=== PATIENT | male | born 1965 | race African-American/Black ===

== ENCOUNTER 2020-06-16 13:40 | Emergency (ER) | payer OTHER ==
[~2020-06-16] VITALS: Ht 167.6 cm; Wt 100.0 kg
[~2020-06-16 13:40] MED LIST: DICL50TA2 PO
[2020-06-16 14:30] VITALS: BP 119/77
[2020-06-16] MEDS ORDERED: KETOROLAC 60 MG/2 ML VIAL. IM ONE (15:00)
--- NOTE | 2020-06-16 15:26 | RAD ---
EXAM: Pelvis CT without contrast. HISTORY: Fall. Pain. TECHNIQUE: Computed tomographic images of the pelvis were obtained without contrast. *One or more of the following individualized dose reduction techniques were utilized for this examina tion: 1. Automated exposure control. 2. Adjustment of the mA and/or kV according to patient size. 3. Use of iterative reconstruction technique. COMPARISON: None. FINDINGS: No acute fracture is seen. There is no hip dislocation. There are bilateral os acetabuli or chronic fragmented superior acetabular osteophytes. There is minimal marginal femoral head spurring. There is mild degenerative change involving the sacroiliac joints. At L4-L5, there is a left foraminal to extra foraminal disc protrusion and osteophyte complex superim posed on a disc bulge and endplate remodeling. There is mild bilateral facet arthropathy. There is mo derate right and moderate to severe left foraminal stenosis. There is moderate central canal stenosis . At L5-S1, there is a disc bulge and endplate remodeling. There is moderate right facet arthropathy. T here is moderate right and mild left foraminal stenosis. The visualized abdominal and pelvic visceral and vascular structures are unremarkable. IMPRESSION: 1. No acute osseous finding. 2. Minimal bilateral hip osteoarthritis. 3. Degenerative change at the lower lumbar levels, resulting in stenosis as described above. Electronically signed by: Yara Goodwin MD (06/16/2020 3:24 PM) [id number]
[2020-06-16] MEDS ORDERED: MELO15TA23 PO (16:31)
--- NOTE | 2020-06-16 16:31 | PHYS DOC ---
Past Medical History Past Medical History: No Pertinent History Past Surgical History: No Surgical History Smoking Status: Never Smoker Alcohol Use: None General Adult EDM: Chief Complaint: HIP PAIN HPI: HPI: Patient is a 55 year old complains of a fall 2 weeks ago in which she suffered left hip pain. States that a week ago he could not stand the pain anymore and was seen at [facility]. Patient states that the emergency department at did an x-ray of his hip told him there was no fracture and sent him home with pain medications. States he has taken all of his [place] and is out of pain medications and wants reevaluated for his hip pain as he states it is a 10/10 on a 1-10 pain scale and he cannot take the pain any longer. Patient denies any numbness or tingling to his lower extremities, denies swelling of his lower extremities. Patient denies any other symptoms or complaints. Review of Systems: Review of Systems: 14 body systems of review of systems have been reviewed. See HPI for pertinent positives and negative responses, otherwise all other systems are negative, nonpertinent or noncontributory. Heart Score: Risk Factors: Risk Factors: DM, Current or recent (<one month) smoker, HTN, HLP, family history of CAD, obesity. Risk Scores: Score 0 - 3: 2.5% MACE over next 6 weeks - Discharge Home Score 4 - 6: 20.3% MACE over next 6 weeks - Admit for Clinical Observation Score 7 - 10: 72.7% MACE over next 6 weeks - Early Invasive Strategies Current Medications: Current Medications Medications (Trade) Dose Ordered Sig/[facility] Start Time Stop Time Status Last Admin Dose Admin Ketorolac Tromethamine (Toradol Im) 60 mg 1X ONCE 06/16/20 15:00 06/16/20 15:01 DC 06/16/20 15:23 60 MG Allergies: Allergies: Allergies Coded Allergies Type Severity Reaction Last Updated Verified No Known Drug Allergies 06/16/20 No Physical Exam: PE: Constitutional: Well developed, well nourished, no acute distress, non-toxic appearance. Patient is complaint of pain is greater than physical examination and presentation. HENT: Normocephalic, atraumatic, bilateral external ears normal, oropharynx moist, no oral exudates, nose normal. Eyes: PERRLA, EOMI, conjunctiva normal, no discharge. Neck: Normal range of motion, no tenderness, supple, no stridor. Cardiovascular:Heart rate regular rhythm, no murmur Lungs & Thorax: Bilateral breath sounds clear to auscultation Abdomen: Bowel sounds normal, soft, no tenderness, no masses, no pulsatile masses. Skin: Warm, dry, no erythema, no rash. Back: No tenderness, no CVA tenderness. Extremities: No tenderness, no cyanosis, no clubbing, ROM intact, no edema. Except for pain elicited to left hip with palpation, no loss of sensation, limited passive range of motion related to patient's complaint of pain, no swelling, no edema, distal cap refill less than 2 seconds on the left leg, 2+ dorsalis pedis/posterior tibial pulses of the left leg. Bilateral lower extremities neurovascular intact. Neurologic: Alert and oriented X 3, normal motor function, normal sensory function, no focal deficits noted. Psychologic: Affect normal, judgement normal, mood normal. Current Patient Data: Vital Signs: Vital Signs Date Time Temp Pulse Resp B/P (MAP) Pulse Ox O2 Delivery O2 Flow Rate FiO2 06/16/20 14:30 98.6 103 18 119/77 (91) 98 Room Air 98.6 EKG: EKG: [] Radiology/Procedures: Radiology/Procedures: SEX: M EXAM STATUS: REG ER ORD. PHYSICIAN: CHRISTY BOTELLO APRN REASON: SLIP AND FALL, LEFT HIP/PELVIS PAIN PROCEDURE: CT PELVIS WO CONTRAST EXAM: Pelvis CT without contrast. HISTORY: Fall. Pain. TECHNIQUE: Computed tomographic images of the pelvis were obtained without contrast. *One or more of the following individualized dose reduction techniques were utilized for this examination: 1. Automated exposure control. 2. Adjustment of the mA and/or kV according to patient size. 3. Use of iterative reconstruction technique. COMPARISON: None. FINDINGS: No acute fracture is seen. There is no hip dislocation. There are bilateral os acetabuli or chronic fragmented superior acetabular osteophytes. There is minimal marginal femoral head spurring. There is mild degenerative change involving the sacroiliac joints. At L4-L5, there is a left foraminal to extra foraminal disc protrusion and os teophyte complex superimposed on a disc bulge and endplate remodeling. There is mild bilateral facet arthropathy. There is moderate right and moderate to severe left foraminal stenosis. There is moderate central canal stenosis. At L5-S1, there is a disc bulge and endplate remodeling. There is moderate right facet arthropathy. There is moderate right and mild left foraminal stenosis. The visualized abdominal and pelvic visceral and vascular structures are unremarkable. IMPRESSION: 1. No acute osseous finding. 2. Minimal bilateral hip osteoarthritis. 3. Degenerative change at the lower lumbar levels, resulting in stenosis as described above. Electronically signed by: Yara Goodwin MD (06/16/2020 3:24 PM) [id number] DICTATED and SIGNED BY: YARA GOODWIN MD DATE: 06/16/20 [id number] 0 Course & Med Decision Making: Course & Med Decision Making Pertinent Labs and Imaging studies reviewed. (See chart for details) 55-year-old male, vital signs reviewed, complaining of left hip pain for the past 2 weeks status post fall. A CT pelvis and hips were performed, dege nerative arthritic changes per house radiologist interpretation. Discussed findings with patient. Will start on meloxicam. Patient gave verbal understanding of need to follow-up with primary care for pain management, return to ER precautions and concerns, had no further questions or concerns and was discharged home without incident. Impression: #1 left hip pain #2 arthritis of the left hip [place] Disclaimer: [place] Disclaimer: This electronic medical record was generated, in whole or in part, using a voice recognition dictation system. Departure Departure Impression: Primary Impression: Left hip pain Additional Impression: Arthritis of left hip Disposition: 01 DC HOME SELF CARE/HOMELESS Condition: IMPROVED Referrals: BLOSSOM BOYKIN MD (PCP) Additional Instructions: Please take prescribed medication as directed, see your doctor soon for follow- up pain management care, return to the emergency department for worsening symptoms or other concerns. EMERGENCY DEPARTMENT GENERAL DISCHARGE INSTRUCTIONS Thank you for coming to [facility] Emergency Department (ED) today and trusting us with you care. We trust that you had a positive experience in our Emergency Department. If you wish to speak to the department management, you may call the Director at [phone]. YOUR FOLLOW UP INSTRUCTIONS ARE FOLLOWS: 1. Do you have a private Doctor? If you do not have a private doctor, please ask for a resource list of physicians or clinics that may be able to assist you with follow up care. 2. The Emergency Physicain has interpreted your x-rays. The X-Ray specialist will also review them. If there is a change in the findings, you will be notified in 48 h ours when at all possible. 3. A lab test or culture has been done, your results will be reviewed and you will be notified if you need a change in treatment. ADDITIONAL INSTRUCTIONS AND INFORMATION: 1. Your care today has been supervised by a physician who is specially trained in emergency care. Many problems require more than one evaluation for a complete diagnosis and treatment. We recommend that you schedule your follow up appointment as recommended to ensure complete treatment of you illness or injury. If you are unable to obtain follow up care and continue to have a problem, or if your condition worsens, we recommend that you return to the ED. 2. We are not able to safely determine your condition over the phone nor are we able to give sound medical advice over the phone. For these safety reasons, if you call for medical advice we will ask you to come to the ED for further evaluation. 3. If you have any questions regarding these discharge instructions please call the ED at [phone]. SAFETY INFORMATION: In the interest of safety, wellness, and injury prevention; we encourage you to wear your sealbelt, if you smoke; quite smoking, and we encourage family to use a protective helmet for bicycling and other sporting events that present an increased risk for head injury. IF YOUR SYMPTOMS WORSEN OR NEW SYMPTOMS DEVELOP, OR YOU HAVE CONCERNS ABOUT YOUR CONDITION; OR IF YOUR CONDITION WORSENS WHILE YOU ARE WAITING FOR YOUR FOLLOW UP APPOINTMENT; EITHER CONTACT YOUR PRIMARY CARE DOCTOR, THE PHYSICIAN WHOSE NAME AND NUMBER YOU WERE GIVEN, OR RETURN TO THE ED IMMEDIATELY. Scripts Meloxicam (MELOXICAM) 15 Mg Tablet 1 TAB PO DAILY for HIP ARTHRITIS for 30 Days, #30 TAB 0 Refills Prov: CHRISTY BOTELLO APRN 06/16/20 CHRISTY BOTELLO APRN Jun 16, 2020 16:31
== END 2020-06-16 16:43 | disposition home or self-care (01) ==
LOC: ER 13:40
DX: M16.0 Bilateral primary osteoarthritis of hip (principal); M25.552 Pain in left hip; G89.11 Acute pain due to trauma; W01.0XXA Fall on same level from slipping, tripping and stumbling without subsequent striking against object, initial encounter; Y93.89 Activity, other specified; Y92.89 Other specified places as the place of occurrence of the external cause; Y99.8 Other external cause status
CPT/HCPCS: 72192; 96372; 99284; J1885